=== PATIENT | male | born 1985 | race African-American/Black ===

== ENCOUNTER 2017-01-14 09:22 | Emergency (ER) | payer SELFPAY ==
[2017-01-14] MEDS ORDERED: Aspirin 325 MG Tab PO ONE (09:38)
[2017-01-14] MEDS ORDERED: Nitroglycerin 0.4 MG Tab.SL SL ONE (09:38)
--- NOTE | 2017-01-14 09:48 | EDM.PDOC ---
ED HISTORY OF PRESENT ILLNESS - General Chief Complaint: Chest Pain Stated Complaint: CHEST PAINS Time Seen by Provider: 01/14/17 09:27 - History of Present Illness INITIAL COMMENTS - FREE TEXT/NARRATIVE: History of present illness: [31 yo male with no past medical history c/o of substernal chest pain that started last night 06/12. This is his first episode. 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 He ate usual ham sandwich and drank water. He did not have heartburn or recent fever, cough, He thought if he lay down it would go away but worsened by this morning. It does not radiate or change with breathing. It is tender to touch and worsens with movement and cough.] Review of systems: As per history of present illness and below otherwise all systems reviewed and negative. Past medical history: As per history of present illness and as reviewed below otherwise noncontributory. Surgical history: As per history of present illness and as reviewed below otherwise noncontributory. Social history: No reported history of drug or alcohol abuse. Family history: As per history of present illness and as reviewed below otherwise noncontributory. Physical exam: General: Well developed, well nourished in NAD HEENT: Atraumatic, normocephalic, pupils reactive, negative for conjunctival pallor or scleral icterus, mucous membranes moist, throat clear, neck supple, nontender, trachea midline. Lungs: Clear to auscultation, breath sounds equal bilaterally, chest tender to palpation. Heart: S1S2, regular, negative for clicks, rubs, or JVD. Abdomen: Soft, nondistended, nontender. Negative for masses or hepatosplenomegaly. Negative for costovertebral tenderness. Pelvis: Stable nontender. Genitourinary: Deferred. Rectal: Deferred. Extremities: Atraumatic, negative for cords or calf pain. Neurovascular unremarkable. Neuro: Awake, alert, oriented. Cranial nerves II through XII unremarkable. Cerebellum unremarkable. Motor and sensory unremarkable throughout. Exam nonfocal. Diagnostics: [EKG: No acute ST or T changes, CBC, CMP unremarkable. Troponin x 1 negative. CKMB negative ] Therapeutics: [NTG S/L x 1 and morphine. Chest pain resolved. ] Impression: [ costochondriits ] Plan: [Ibuprofen OTC prn] Definitive disposition and diagnosis as appropriate pending reevaluation and review of above. - Related Data Allergies/ADRs: Allergies Allergy/AdvReac Type Severity Reaction Status Date / Time No Known Allergies Allergy Verified 01/14/17 09:33 Home Meds: Home Meds . [No Known Home Meds] 01/14/17 [History] Past Medical History - Past Health History Medical/Surgical History: Denies Medical/Surgical History - Infectious Disease History Infectious Disease History: Reports: Chicken pox Social & Family History - Family History Family Medical History: Noncontributory - Tobacco Use Smoking Status *Q: Former Smoker - Caffeine Use Caffeine Use: Reports: Soda - Recreational Drug Use Recreational Drug Use: No ED ROS GENERAL - Review of Systems Review Of Systems: See Below (See history of present illness) ED EXAM, GENERAL - Physical Exam Exam: See Below (See history of present illness) Course - Vital Signs Last Recorded V/S: Last Vital Signs Temp 97.6 F 01/14/17 09:27 Pulse 71 01/14/17 09:27 Resp 18 01/14/17 09:27 BP 137/91 H 01/14/17 09:44 Pulse Ox 98 01/14/17 09:27 - Orders/Labs/Meds Orders: Active Orders 24 hr Category Date Time Status Chest 2V [CR] Stat Exams 01/14/17 10:14 Ordered Labs: Laboratory Tests 01/14/17 01/14/17 01/14/17 Range/Units 09:20 09:20 09:20 WBC 6.57 (4.0-11.0) K/uL RBC 5.18 (4.50-5.90) M/uL Hgb 15.7 (13.0-17.0) g/dL Hct 46.1 (38.0-50.0) % MCV 89.0 (80.0-98.0) fL MCH 30.3 (27.0-32.0) pg MCHC 34.1 (31.0-37.0) g/dL RDW Std Deviation 40.7 (28.0-62.0) fl RDW Coeff of Colt 13 (11.0-15.0) % Plt Count 301 (150-400) K/uL MPV 9.90 (7.40-12.00) fL Neut % (Auto) 35.3 L (48.0-80.0) % Lymph % (Auto) 47.6 H (16.0-40.0) % [place] % (Auto) 8.4 (0.0-15.0) % Eos % (Auto) 7.6 H (0.0-7.0) % Baso % (Auto) 1.1 (0.0-1.5) % Neut # 2.3 (1.4-5.7) K/uL Lymph # 3.1 H (0.6-2.4) K/uL [place] # 0.6 (0.0-0.8) K/uL Eos # 0.5 (0.0-0.7) K/uL Baso # 0.1 (0.0-0.1) K/uL Nucleated RBC % 0.0 /100WBC Nucleated RBCs # 0 K/uL Sodium 142 (136-146) mmol/L Potassium 4.1 (3.5-5.1) mmol/L Chloride 107 (98-110) mmol/L Carbon Dioxide 26 (21-31) mmol/L BUN 16 (6.0-23.0) mg/dL Creatinine 1.1 (0.6-1.5) mg/dL Est Cr Clr Drug Dosing 105.53 mL/min Estimated GFR (MDRD) > 60.0 ml/min Glucose 87 (60-110) mg/dL Calcium 9.4 (8.8-10.8) mg/dL Total Bilirubin 0.3 (0.1-1.5) mg/dL AST 29 (5-40) IU/L ALT 27 (8-54) IU/L Alkaline Phosphatase 76 (40-150) CK-MB (CK-2) (0-6.6) ng/ml Troponin I < 0.10 (0.0-0.29) NG/ML Total Protein 7.6 (6.0-8.0) g/dL Albumin 4.3 (3.5-5.0) g/dL Globulin 3.3 (2.0-3.5) g/dL Albumin/Globulin Ratio 1.3 (1.3-2.8) 01/14/17 Range/Units 09:20 WBC (4.0-11.0) K/uL RBC (4.50-5.90) M/uL Hgb (13.0-17.0) g/dL Hct (38.0-50.0) % MCV (80.0-98.0) fL MCH (27.0-32.0) pg MCHC (31.0-37.0) g/dL RDW Std Deviation (28.0-62.0) fl RDW Coeff of Colt (11.0-15.0) % Plt Count (150-400) K/uL MPV (7.40-12.00) fL Neut % (Auto) (48.0-80.0) % Lymph % (Auto) (16.0-40.0) % [place] % (Auto) (0.0-15.0) % Eos % (Auto) (0.0-7.0) % Baso % (Auto) (0.0-1.5) % Neut # (1.4-5.7) K/uL Lymph # (0.6-2.4) K/uL [place] # (0.0-0.8) K/uL Eos # (0.0-0.7) K/uL Baso # (0.0-0.1) K/uL Nucleated RBC % /100WBC Nucleated RBCs # K/uL Sodium (136-146) mmol/L Potassium (3.5-5.1) mmol/L Chloride (98-110) mmol/L Carbon Dioxide (21-31) mmol/L BUN (6.0-23.0) mg/dL Creatinine (0.6-1.5) mg/dL Est Cr Clr Drug Dosing mL/min Estimated GFR (MDRD) ml/min Glucose (60-110) mg/dL Calcium (8.8-10.8) mg/dL Total Bilirubin (0.1-1.5) mg/dL AST (5-40) IU/L ALT (8-54) IU/L Alkaline Phosphatase (40-150) CK-MB (CK-2) 4.0 (0-6.6) ng/ml Troponin I (0.0-0.29) NG/ML Total Protein (6.0-8.0) g/dL Albumin (3.5-5.0) g/dL Globulin (2.0-3.5) g/dL Albumin/Globulin Ratio (1.3-2.8) Meds: Medications Discontinued Medications Generic Name Dose Route Start Last Admin Trade Name Savanna PRN Reason Stop Dose Admin Aspirin 325 mg 01/14/17 09:38 01/14/17 09:43 Aspirin PO 01/14/17 09:39 325 mg ONETIME ONE Administration Morphine Sulfate 2 mg 01/14/17 09:51 01/14/17 09:59 Morphine IVPUSH 01/14/17 09:52 2 mg ONETIME ONE Administration Nitroglycerin 0.4 mg 01/14/17 09:38 01/14/17 09:44 Nitrostat SL 01/14/17 09:39 0.4 mg ONETIME ONE Administration Departure - Departure Time of Disposition: 10:40 Disposition: Home, Self-Care 01 Condition: good Clinical Impression: Costochondral chest pain Referrals: Lety Sinha MD [Emergency Provider] - Forms: ED Department Discharge Additional Instructions: The following information is given to patients seen in the emergency department who are being discharged to home. This information is to outline your options for follow-up care. We provide all patients seen in our emergency department with a follow-up referral. The need for follow-up, as well as the timing and circumstances, are variable depending upon the specifics of your emergency department visit. If you don't have a primary care physician on staff, we will provide you with a referral. We always advise you to contact your personal physician following an emergency department visit to inform them of the circumstance of the visit and for follow-up with them and/or the need for any referrals to a consulting specialist. The emergency department will also refer you to a specialist when appropriate. This referral assures that you have the opportunity for follow-up care with a specialist. All of these measure are taken in an effort to provide you with optimal care, which includes your follow-up. Under all circumstances we always encourage you to contact your private physician who remains a resource for coordinating your care. When calling for follow-up care, please make the office aware that this follow-up is from your recent emergency room visit. If for any reason you are refused follow-up, please contact the [facility] Emergency Department at and asked to speak to the emergency department charge nurse.
[2017-01-14] MEDS ORDERED: Morphine 2 MG/ML Syringe IVPUSH ONE (09:51)
[2017-01-14 10:00] LABS: CHLORIDE,CL 107 mmol/L (98-110); SODIUM,NA 142 mmol/L (136-146)
--- NOTE | 2017-01-14 10:56 | CR ---
EXAMINATION: Two-view chest (PA and Lateral views). HISTORY: Shortness of breath. FINDINGS: The trachea is midline. The cardiomediastinal silhouette is within normal limits. No pulmonary infil trates, effusions or pneumothorax. Osseous structures appear unremarkable. IMPRESSION: No acute cardiopulmonary process.
[2017-01-14 11:14] VITALS: BP 188/73
== END 2017-01-14 11:15 | disposition home or self-care (01) ==
LOC: MW.ED 09:22
DX: M94.0 Chondrocostal junction syndrome [Tietze] (principal); Z87.891 Personal history of nicotine dependence
CPT/HCPCS: 71020; 80053; 82553; 84484; 85025; 93005; 96374; 99285; A9270; J2270; 99284

== ENCOUNTER 2017-10-09 12:00 | Emergency (ER) | payer SELFPAY ==
[2017-10-09] MEDS ORDERED: Ketorolac 60 MG/2 ML SDV IM ONE (12:16)
--- NOTE | 2017-10-09 12:57 | EDM.PDOC ---
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 Patient states his pain is getting worse despite Motrin. He denies any shortness of breath but states it hurts when he breathes. Off or fevers Review of systems: As per history of present illness and below otherwise all systems reviewed and negative. Past medical history: As per history of present illness and as reviewed below otherwise noncontributory. Surgical history: As per history of present illness and as reviewed below otherwise noncontributory. Social history: No reported history of drug or alcohol abuse. Family history: As per history of present illness and as reviewed below otherwise noncontributory. Physical exam: General: Well developed, well nourished in NAD HEENT: Atraumatic, normocephalic, pupils reactive, negative for conjunctival pallor or scleral icterus, mucous membranes moist, throat clear, neck supple, nontender, trachea midline. Lungs: Clear to auscultation, breath sounds equal bilaterally, chest nontender. Heart: S1S2, regular, negative for clicks, rubs, or JVD. Abdomen: Soft, nondistended, nontender. Negative for masses or hepatosplenomegaly. Negative for costovertebral tenderness. Pelvis: Stable nontender. Genitourinary: Deferred. Rectal: Deferred. Extremities: Atraumatic, negative for cords or calf pain. Neurovascular unremarkable. Neuro: Awake, alert, oriented. Cranial nerves II through XII unremarkable. Cerebellum unremarkable. Motor and sensory unremarkable throughout. Exam nonfocal. Diagnostics: []Chest x-ray negative EKG negative Therapeutics: []Toradol IM given in the ED mild relief Impression: []Chest wall muscle strain Plan: []Tramadol Flexeril for pain follow-up PMD Definitive disposition and diagnosis as appropriate pending reevaluation and review of above. right lower rib Pain Score (Numeric/FACES): 9 - Related Data Allergies Allergy/AdvReac Type Severity Reaction Status Date / Time No Known Allergies Allergy Verified 10/09/17 12:02 Home Meds: Home Meds Cyclobenzaprine [Flexeril] 10 mg PO BID PRN #16 tablet 10/09/17 [Rx] traMADol [Ultram] 50 mg PO Q8H PRN #16 tablet 10/09/17 [Rx] Past Medical History - Past Health History Medical/Surgical History: Denies Medical/Surgical History - Infectious Disease History Infectious Disease History: Reports: Chicken Pox Social & Family History - Family History Family Medical History: Noncontributory - Tobacco Use Smoking Status *Q: Never Smoker - Caffeine Use Caffeine Use: Reports: Soda - Recreational Drug Use Recreational Drug Use: No ED ROS GENERAL - Review of Systems Review Of Systems: See Below (See history of present illness) ED EXAM, GENERAL - Physical Exam Exam: See Below (See history of present illness) Course - Vital Signs Last Recorded V/S: Last Vital Signs Temp 97.6 F 10/09/17 12:11 Pulse 64 10/09/17 13:08 Resp 18 10/09/17 13:08 BP 167/103 H 10/09/17 13:08 Pulse Ox 96 10/09/17 13:08 - Orders/Labs/Meds Orders: Active Orders 24 hr Category Date Time Status EKG Documentation Completion [RC] STAT Care 10/09/17 12:12 Active Chest 2V [CR] Stat Exams 10/09/17 12:13 Taken Meds: Medications Discontinued Medications Generic Name Dose Route Start Last Admin Trade Name Freq PRN Reason Stop Dose Admin Ketorolac Tromethamine 60 mg 10/09/17 12:16 10/09/17 12:24 Toradol IM 10/09/17 12:17 60 mg ONETIME ONE Administration Departure - Departure Time of Disposition: 12:58 Disposition: Home, Self-Care 01 Condition: Good Clinical Impression: Chest wall muscle strain Qualifiers: Encounter type: initial encounter Qualified Code(s): S29.011A - Strain of muscle and tendon of front wall of thorax, initial encounter Clinical Impression: (Ruled Out): Pain Prescriptions: Cyclobenzaprine [Flexeril] 10 mg PO BID PRN #16 tablet PRN Reason: Pain traMADol [Ultram] 50 mg PO Q8H PRN #16 tablet PRN Reason: Pain Instructions: Chest Wall Pain, [id number], Muscle Strain, [id number] Referrals: PCP,None [Primary Care Provider] - Forms: ED Department Discharge Additional Instructions: The following information is given to patients seen in the emergency department who are being discharged to home. This information is to outline your options for follow-up care. We provide all patients seen in our emergency department with a follow-up referral. The need for follow-up, as well as the timing and circumstances, are variable depending upon the specifics of your emergency department visit. If you don't have a primary care physician on staff, we will provide you with a referral. We always advise you to contact your personal physician following an emergency department visit to inform them of the circumstance of the visit and for follow-up with them and/or the need for any referrals to a consulting specialist. The emergency department will also refer you to a specialist when appropriate. This referral assures that you have the opportunity for follow-up care with a specialist. All of these measure are taken in an effort to provide you with optimal care, which includes your follow-up. Under all circumstances we always encourage you to contact your private physician who remains a resource for coordinating your care. When calling for follow-up care, please make the office aware that this follow-up is from your recent emergency room visit. If for any reason you are refused follow-up, please contact the [facility] Emergency Department at and asked to speak to the emergency department charge nurse. Tramadol, Flexeril for pain as directed follow-up with PMD [facility] [address] [place] [id number] - My Orders Last 24 Hours: My Active Orders 10/09/17 12:12 EKG Documentation Completion [RC] STAT 10/09/17 12:13 Chest 2V [CR] Stat - Assessment/Plan Last 24 Hours: My Active Orders 10/09/17 12:12 EKG Documentation Completion [RC] STAT 10/09/17 12:13 Chest 2V [CR] Stat
[2017-10-09 13:25] VITALS: BP 167/103
--- NOTE | 2017-10-09 15:38 | CR ---
EXAM DATE: 10/09/17 PATIENT'S AGE: 32 Patient: TAHMINA GONZALEZ Facility: [place], [place] Site . Site : [id number] Study: XRay Chest [id number]/7/2017 12:42:56 PM Ordering Physician: Nito Bennett Final Report: INDICATION: Anterior chest pain, shortness of breath. COMPARISON: none TECHNIQUE: Two view chest. FINDINGS: The lungs are clear. There is no evidence of pneumothorax. The heart, mediastinum and pulmonary vessels are of normal size. There is no evidence of pleural fluid. IMPRESSION: Negative chest. Dictated by Perry Santo MD @ Oct 09 2017 1:06PM (Electronic Signature) Report Signed by Proxy. ADELAIDE
== END 2017-10-09 13:08 | disposition home or self-care (01) ==
LOC: MW.ED 12:00
DX: S29.011A Strain of muscle and tendon of front wall of thorax, initial encounter (principal); X50.9XXA Other and unspecified overexertion or strenuous movements or postures, initial encounter; Y93.89 Activity, other specified
CPT/HCPCS: 71020; 93005; 96372; 99283; J1885; 99284